=== PATIENT | female | born 1975 | race Caucasian/White ===

== ENCOUNTER 2016-08-28 17:57 | Emergency (ER) ==
[2016-08-28 18:59] LABS: MANUAL DIFF NEEDED? NO
[2016-08-28 19:04] LABS: BASO% 0.2 % (0.0-0.8); EOS# 0.01 X1000 (0.0-0.7); EOS% 0.1 % (0.0-10.0); HEMATOCRIT 38.7 % (37.0-47.0); HEMOGLOBIN 13.1 g/dL (12.0-16.0); IMM GRAN# 0.02 X1000 (0.0-0.04); IMM GRAN% 0.2 % (0.0-0.5); LYMPH# 0.58 X1000 (1.2-3.4); LYMPH% 6.8 % (20.5-51.1); MCH 30.8 PG (27-31); MCHC 33.9 g/dL (33-37); MCV 90.8 FL (81-99); MONO% 10.5 % (1.7-9.3); MPV 9.7 FL (7.4-10.4); NEUT% 82.2 % (42.2-75.2); PLT 88 X1000 (130-400); RBC 4.26 XMIL (4.2-5.4)
[2016-08-28 19:20] LABS: AGAP 16; ALBUMIN 3.1 g/dL (3.5-5.0); ALKALINE PHOSPHATASE 396 U/L (32-104); BUN 21 mg/dL (8-22); CALCIUM 7.8 mg/dL (8.8-10.2); CHLORIDE 96 mmol/L (98-107); COSMO 272; GOT 144 U/L (10-30); GPT 74 U/L (10-36); POTASSIUM 3.4 mmol/L (3.5-5.1); SODIUM 134 mmol/L (136-145); TCO2 22 mmol/L (25-35); TOTAL BILIRUBIN 0.34 mg/dL (0.20-1.00); TOTAL PROTEIN 6.7 g/dL (6.3-8.3); URIC ACID 0.8 mg/dL (2.4-5.7)
[2016-08-28] MEDS ORDERED: CLINDAMYCIN 300 MG in NS 50 ML IV ONE (19:41)
[2016-08-28] MEDS ORDERED: TORADOL IV ONE (19:41)
[2016-08-28] MEDS ORDERED: NS 1,000 ML IV ONE (19:41)
[2016-08-28 20:03] LABS: SED RATE 93 mm/hr (0-20)
[2016-08-28 20:40] LABS: URINE CULTURE NEEDED? NO; URINE MICRO REVIEW NEEDED? NO; URINE SOURCE CLEAN CATCH
[2016-08-28 20:43] LABS: BILIRUBIN URINE SMALL (NEGATIVE); BLOOD URINE MODERATE (NEGATIVE); COLOR YELLOW; GLUCOSE URINE NEGATIVE (NEGATIVE); LEUKOCYTES URINE NEGATIVE (NEGATIVE); NITRITE URINE NEGATIVE (NEGATIVE); PH URINE 5.5; PROTEIN URINE 300 mg/dL (NEGATIVE); SP GRAVITY URINE 1.026; TURBIDITY URINE HAZY (CLEAR); UR EPITHELIAL CELLS <10 /HPF (<10); URINE BACTERIA 1+ /HPF; URINE RBC TNTC /HPF (<10); URINE WBC <10 /HPF (<10); UROBILINOGEN URINE 6 mg/dL (NORMAL)
[2016-08-28 20:54] LABS: UR AMPHETAMINES QUAL NONE DETECTED (NONE DETECT); UR BARBITUATES QUAL NONE DETECTED (NONE DETECT); UR BENZODIAZEPIN QUAL NONE DETECTED (NONE DETECT); UR CANNABINOIDS QUAL NONE DETECTED (NONE DETECT); UR COCAINE QUAL NONE DETECTED (NONE DETECT); UR METHADONE QUAL NONE DETECTED (NONE DETECT); UR OPIATES QUAL NONE DETECTED (NONE DETECT); UR OXYCODONE QUAL NONE DETECTED (NONE DETECT); UR PCP QUAL NONE DETECTED (NONE DETECT)
[2016-08-28 21:12] VITALS: BP 105/63
--- NOTE | 2016-08-28 21:14 | PROVIDER DOCUMENTATION ---
HPI-Rash/Wound/ReCheck - General Chief Complaint: Extremity Pain Stated Complaint: HAND SWOLLEN/PAIN Time Seen by Provider: 08/28/16 18:12 Source: patient Allergies/Adverse Reactions: Allergies Allergy/AdvReac Type Severity Reaction Status Date / Time No Known Allergies Allergy Verified 08/28/16 18:30 Home Medications: Buprenorphine HCl/Naloxone HCl [Suboxone 8 mg/2 mg Sl Film] 1 each SL DAILY 12/04 - History of Present Illness-Dermatology Nature of Presenting Problem: This pt presents today c complaints of erythema and swelling to the posterior R hand and wrist X 2 days. She denies any erythematous streaking. No fever, chills. She state that this happened once before in her ankle and she "ignored" it for a month and had to be hospitalized for cellulitis. She denies any IV drug abuse. No other issues or complaints. Location: reports: hands Quality: reports: painful Severity: reports: moderate Onset/Duration: reports: 2 days ago Timing: reports: still present Context/Associated Symptoms: reports: other (see hpi) Similar Symptoms Previously?: Yes Recently seen or treated by another doctor?: No Review of Systems - Adult - REVIEW OF SYSTEMS - ADULT Constitutional: reports: no symptoms reported. denies: chills, fever Eyes: reports: no symptoms reported. denies: discharge, dry eyes Ears, Nose, Mouth & Throat: reports: no symptoms reported. denies: ear discharge, ear pain Cardiovascular: reports: no symptoms reported. denies: chest pain, edema Respiratory: reports: no symptoms reported. denies: chronic cough, cough Gastrointestinal: reports: no symptoms reported. denies: abdominal pain, hematemesis Genitourinary: reports: no symptoms reported. denies: dysuria, discharge Musculoskeletal: reports: see HPI, joint pain, joint swelling. denies: bone pain, back pain Integumentary: reports: see HPI. denies: hives, hair loss Neurological: reports: no symptoms reported. denies: ataxia, dizziness/vertigo Psychiatric: reports: no symptoms reported. denies: anxiety, anti-depressant use Endocrine: reports: no symptoms reported Hematologic/Lymphatic: reports: no symptoms reported Allergic/Immunologic: reports: no symptoms reported All Other Systems: Reviewed and Negative Past History - Adult - PAST MEDICAL HISTORY-ADULT Review of Records: reports: Old Records Reviewed, Nursing Assessment Review, Medications Reviewed, Social history reviewed & non-contributory. Major Childhood Illnesses: reports: denies history Cardiovascular: reports: denies history Respiratory: reports: denies history Gastrointestinal: reports: denies history Obstetrical/Gynecological: reports: denies history Genitourinary: reports: denies history Musculoskeletal: reports: denies history Neurological: reports: denies history Endocrine/Immune: reports: denies history Other Conditions: reports: denies history - FAMILY HISTORY Family History: reviewed, not pertinent Physical Exam-General - PHYSICAL EXAM-ADULT Initial Vital Signs Reviewed: Yes - CONSTITUTIONAL General Appearance: appears well, alert, no apparent distress - EYES Eyes: PERRL/EOMI, pink conjunctivae - HEAD, EARS, NOSE, MOUTH & THROAT HENMT: normocephalic/atraumatic, moist mucous membranes, normal ENT inspection - NECK Neck: non-tender, full range of motion, normal inspection - RESPIRATORY Respiratory: chest non-tender, lungs clear, normal breath sounds - CARDIOVASCULAR Cardiovascular: normal peripheral pulses, regular rate, rhythm, no edema - GASTROINTESTINAL (ABDOMEN) Abdominal Exam: normal bowel sounds, non tender, soft - LYMPHATIC Lymphatic: no adenopathy - MUSCULOSKELETAL Back Exam: normal inspection, no CVA tenderness, no vertebral tenderness Extremity: normal gait, erythema, swelling, tenderness, other (pt is able to bend at the wrist but c pain) - SKIN Integumentary: normal turgor, warm/dry, erythema - NEUROLOGIC Neurologic: grossly normal, no motor/sensory deficits. negative: facial droop, focal weakness, motor weakness, sensory deficit - PSYCHIATRIC Psych/Mental Status: normal mood/affect, normal thought content, normal thought process, oriented x 3 Progress - PLAN OF CARE/RESULTS Progress/Plan/Lab Results: Laboratory Tests 08/28/16 08/28/16 08/28/16 18:48 18:48 20:36 WBC 8.56 RBC 4.26 Hgb 13.1 Hct 38.7 MCV 90.8 MCH 30.8 MCHC 33.9 RDW Std Deviation 16.4 H Plt Count 88 L MPV 9.7 Immature Gran % (Auto) 0.2 Neut % (Auto) 82.2 H Lymph % (Auto) 6.8 L [place] % (Auto) 10.5 H Eos % (Auto) 0.1 Baso % (Auto) 0.2 Immature Gran # (Auto) 0.02 Neut # (Auto) 7.03 H Lymph # (Auto) 0.58 L [place] # (Auto) 0.90 H Eos # (Auto) 0.01 Baso # (Auto) 0.02 ESR 93 H Sodium 134 L Potassium 3.4 L Chloride 96 L Carbon Dioxide 22 L Anion Gap 16 BUN 21 Creatinine 0.7 Estimated GFR/1.73 m2 > 60 BUN/Creatinine Ratio 30 Glucose 112 H Calculated Osmolality 272 Uric Acid 0.8 L Calcium 7.8 L Total Bilirubin 0.34 AST 144 H ALT 74 H Alkaline Phosphatase 396 H Total Protein 6.7 Albumin 3.1 L Globulin 3.6 Albumin/Globulin Ratio 0.9 Urine Source CLEAN CATCH Urine Color YELLOW Urine Turbidity HAZY Urine pH 5.5 Ur Specific [place] 1.026 Urine Protein 300 A Ur Glucose (Stick) NEGATIVE Ur Ketones (Stick) 10 A Urine Blood MODERATE A Urine Nitrite NEGATIVE Urine Bilirubin SMALL A Urobilinogen Dipstick 6 A Urine Leukocytes NEGATIVE Urine WBC (Auto) <10 Urine RBC (Auto) TNTC A U Epithel Cells (Auto) <10 Urine Bacteria (Auto) 1+ Urine Opiates Screen Ur Oxycodone Screen Ur Methadone, Qual Ur Barbiturates Screen Ur Phencyclidine Scrn Ur Amphetamines Screen U Benzodiazepines Scrn Urine Cocaine Screen U Cannabinoids Screen 08/28/16 20:36 WBC RBC Hgb Hct MCV MCH MCHC RDW Std Deviation Plt Count MPV Immature Gran % (Auto) Neut % (Auto) Lymph % (Auto) [place] % (Auto) Eos % (Auto) Baso % (Auto) Immature Gran # (Auto) Neut # (Auto) Lymph # (Auto) [place] # (Auto) Eos # (Auto) Baso # (Auto) ESR Sodium Potassium Chloride Carbon Dioxide Anion Gap BUN Creatinine Estimated GFR/1.73 m2 BUN/Creatinine Ratio Glucose Calculated Osmolality Uric Acid Calcium Total Bilirubin AST ALT Alkaline Phosphatase Total Protein Albumin Globulin Albumin/Globulin Ratio Urine Source Urine Color Urine Turbidity Urine pH Ur Specific [place] Urine Protein Ur Glucose (Stick) Ur Ketones (Stick) Urine Blood Urine Nitrite Urine Bilirubin Urobilinogen Dipstick Urine Leukocytes Urine WBC (Auto) Urine RBC (Auto) U Epithel Cells (Auto) Urine Bacteria (Auto) Urine Opiates Screen NONE DETECTED Ur Oxycodone Screen NONE DETECTED Ur Methadone, Qual NONE DETECTED Ur Barbiturates Screen NONE DETECTED Ur Phencyclidine Scrn NONE DETECTED Ur Amphetamines Screen NONE DETECTED U Benzodiazepines Scrn NONE DETECTED Urine Cocaine Screen NONE DETECTED U Cannabinoids Screen NONE DETECTED Orders Category Date Time Status Saline Loc NOW Care 08/28/16 18:25 Active BLOOD CULTURE [BLDCUL] Stat Lab 08/28/16 19:28 Results CBC WITH ELECTRONIC DIFF [HEME] Stat Lab 08/28/16 18:48 Completed COMPREHENSIVE METABOLIC PANEL [CHEM] Stat Lab 08/28/16 18:48 Completed SED RATE [HEME] Stat Lab 08/28/16 18:48 Completed URIC ACID [CHEM] Stat Lab 08/28/16 18:48 Completed URINALYSIS W/POSS RFLX CULT [URINALYSIS] Stat Lab 08/28/16 20:36 Completed URINE DRUG SCREEN Stat Lab 08/28/16 20:36 Completed 0.9% Sodium Chloride Inj [Ns] 1,000 ml Med 08/28/16 19:41 Discontinued IV 999 mls/hr Clindamycin 300 mg Med 08/28/16 19:41 Discontinued 0.9% Sodium Chloride Inj [Ns] 50 ml IV NOW Ketorolac [Toradol] Med 08/28/16 19:41 Discontinued 15 mg IV NOW ONE Vital Signs Temp Pulse Resp BP Pulse Ox 08/28/16 18:00 98.1 F 99 H 20 134/78 100 No Known Allergies Allergy (Verified 08/28/16 18:30) Buprenorphine HCl/Naloxone HCl [Suboxone 8 mg/2 mg Sl Film] 1 each SL DAILY 12/04 Laboratory 08/28/16 08/28/16 08/28/16 20:36 20:36 18:48 WBC RBC Hgb Hct MCV MCH MCHC RDW Std Deviation Plt Count MPV Immature Gran % (Auto) Neut % (Auto) Lymph % (Auto) [place] % (Auto) Eos % (Auto) Baso % (Auto) Immature Gran # (Auto) Neut # (Auto) Lymph # (Auto) [place] # (Auto) Eos # (Auto) Baso # (Auto) ESR Sodium 134 L Potassium 3.4 L Chloride 96 L Carbon Dioxide 22 L Anion Gap 16 BUN 21 Creatinine 0.7 Estimated GFR/1.73 m2 > 60 BUN/Creatinine Ratio 30 Glucose 112 H Calculated Osmolality 272 Uric Acid 0.8 L Calcium 7.8 L Total Bilirubin 0.34 AST 144 H ALT 74 H Alkaline Phosphatase 396 H Total Protein 6.7 Albumin 3.1 L Globulin 3.6 Albumin/Globulin Ratio 0.9 Urine Source CLEAN CATCH Urine Color YELLOW Urine Turbidity HAZY Urine pH 5.5 Ur Specific [place] 1.026 Urine Protein 300 A Ur Glucose (Stick) NEGATIVE Ur Ketones (Stick) 10 A Urine Blood MODERATE A Urine Nitrite NEGATIVE Urine Bilirubin SMALL A Urobilinogen Dipstick 6 A Urine Leukocytes NEGATIVE Urine WBC (Auto) <10 Urine RBC (Auto) TNTC A U Epithel Cells (Auto) <10 Urine Bacteria (Auto) 1+ Urine Opiates Screen NONE DETECTED Ur Oxycodone Screen NONE DETECTED Ur Methadone, Qual NONE DETECTED Ur Barbiturates Screen NONE DETECTED Ur Phencyclidine Scrn NONE DETECTED Ur Amphetamines Screen NONE DETECTED U Benzodiazepines Scrn NONE DETECTED Urine Cocaine Screen NONE DETECTED U Cannabinoids Screen NONE DETECTED 08/28/16 18:48 WBC 8.56 RBC 4.26 Hgb 13.1 Hct 38.7 MCV 90.8 MCH 30.8 MCHC 33.9 RDW Std Deviation 16.4 H Plt Count 88 L MPV 9.7 Immature Gran % (Auto) 0.2 Neut % (Auto) 82.2 H Lymph % (Auto) 6.8 L [place] % (Auto) 10.5 H Eos % (Auto) 0.1 Baso % (Auto) 0.2 Immature Gran # (Auto) 0.02 Neut # (Auto) 7.03 H Lymph # (Auto) 0.58 L [place] # (Auto) 0.90 H Eos # (Auto) 0.01 Baso # (Auto) 0.02 ESR 93 H Sodium Potassium Chloride Carbon Dioxide Anion Gap BUN Creatinine Estimated GFR/1.73 m2 BUN/Creatinine Ratio Glucose Calculated Osmolality Uric Acid Calcium Total Bilirubin AST ALT Alkaline Phosphatase Total Protein Albumin Globulin Albumin/Globulin Ratio Urine Source Urine Color Urine Turbidity Urine pH Ur Specific [place] Urine Protein Ur Glucose (Stick) Ur Ketones (Stick) Urine Blood Urine Nitrite Urine Bilirubin Urobilinogen Dipstick Urine Leukocytes Urine WBC (Auto) Urine RBC (Auto) U Epithel Cells (Auto) Urine Bacteria (Auto) Urine Opiates Screen Ur Oxycodone Screen Ur Methadone, Qual Ur Barbiturates Screen Ur Phencyclidine Scrn Ur Amphetamines Screen U Benzodiazepines Scrn Urine Cocaine Screen U Cannabinoids Screen Will attempt to tx as outpt. I examined all previous lab work (including UA) and these labs are chronically abnormal. She will return if symptoms worsen. She is in agreement c this plan. Departure - Departure Time of Disposition Order: 21:13 DIAGNOSIS: Cellulitis of hand excluding fingers Disposition: HOME 01 Certified Medical Emergency: Emergent Condition: Good Additional Instructions: Take medication as prescribed. Follow up with your primary care provider or orthopedist. Return to the ER for any new or worsening symptoms. ED Follow Up Instructions: You have been treated by a care provider in the Emergency Department. These instructions are being provided to you so you can have an understanding of how to care for yourself upon discharge. Upon discharge from the Emergency Department, you are responsible for making arrangements for follow-up care by a physician of your choice. Take all prescribed medications as directed. Return to the Emergency Department immediately for any new or worsening symptoms. You may call the Physician Referral phone number at [phone] to obtain a list of Physicians who are taking new patients. Prescriptions: Clindamycin [Cleocin] 150 mg PO Q6HR #30 capsule Diclofenac Na D.r. [Voltaren] 50 mg PO BID #30 tab Referrals: None,PCP [Primary Care Provider] - Brionna Philip MD [STAFF PHYSICIAN] - Attestation - Physician/ Mid-level Attestation Patient care was provided by Mid-level provider (IT ENGINEER/PA):: Yes Mid-level provider:: Marco George Mid-level documentation review:: The Mid-level provider documentation, treatment plan and medical decision making was reviewed by the physician who agrees with all treatment and medical decision making by the P.
== END 2016-08-28 21:30 | disposition home or self-care (01) ==
LOC: ED 17:57
DX: L03.113 Cellulitis of right upper limb (principal); M79.641 Pain in right hand; L53.9 Erythematous condition, unspecified; M25.441 Effusion, right hand; Z79.899 Other long term (current) drug therapy
CPT/HCPCS: 80053; 81001; 84550; 85025; 85651; 87040; 87077; 87186; 96361; 96365; 96375; G0480; J1885; J7030; S0077